=== PATIENT | female | born 1995 | race Caucasian/White ===

== ENCOUNTER 2016-04-06 12:45 | Emergency (ER) | payer MEDICAID, OTHER ==
[~2016-04-06] VITALS: Wt 44.8 kg
[2016-04-06] MEDS ORDERED: ONDANSETRON (ODT) 4 MG TAB ODT STA (14:01)
[2016-04-06] MEDS ORDERED: ACETAMINOPHEN 500 MG TAB PO STA (14:01)
[2016-04-06 14:22] LABS: URINE BLOOD (Dip) POC 1+ (NEGATIVE)
[2016-04-06 14:23] LABS: ADD SCAN DIFF NO
[2016-04-06 14:24] LABS: BASOPHIL # 0.1 10^3/ul (0.0-0.1); BASOPHILS % 0.7 % (0.0-2.0); EOSINOPHILS # 0.2 10^3/ul (0.0-0.5); EOSINOPHILS % 1.4 % (0.0-7.0); HEMATOCRIT 40.4 % (37.0-47.0); LYMPHOCYTES # 4.2 10^3/ul (0.8-2.9); LYMPHOCYTES % 37.8 % (18.0-55.0); MEAN CORPUSCULAR HEMOGLOBIN 28.4 pg (29.0-33.0); MEAN CORPUSCULAR HGB CONC 32.2 g/dl (32.0-37.0); MEAN CORPUSCULAR VOLUME 88.2 fl (72.0-104.0); MEAN PLATELET VOLUME 9.3 fl (7.4-10.4); MONOCYTES % 9.3 % (0.0-13.0); NEUTROPHIL # 5.6 10^3/ul (1.6-7.5); NEUTROPHILS % 50.6 % (30.0-74.0); PLATELET COUNT 379 10^3/UL (140-415); RED BLOOD COUNT 4.58 10^6/ul (4.20-5.40); RED CELL DISTRIBUTION WIDTH 15.4 % (11.5-14.5); WHITE BLOOD COUNT 11.1 10^3/ul (4.8-10.8)
[2016-04-06 14:39] LABS: ALBUMIN/GLOBULIN RATIO 0.95
[2016-04-06 14:47] LABS: ALBUMIN 4.2 g/dl (3.3-4.9); BILIRUBIN,INDIRECT 0.1 mg/dl (0-1.1); BILIRUBIN,TOTAL 0.1 mg/dl (0.2-1.3); CALCIUM 9.3 mg/dl (8.4-10.2); CREATININE 0.62 mg/dl (0.44-1.00); POTASSIUM 4.1 mmol/L (3.5-5.1); TOTAL PROTEIN 8.6 g/dl (6.1-8.1)
[2016-04-06] MEDS ORDERED: ACET500C5 PO (15:11)
[2016-04-06] MEDS ORDERED: ONDA8TAB14 PO (15:11)
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
[2016-04-06] MEDS ORDERED: CEPH-443 PO (15:15)
== END 2016-04-06 15:32 | disposition home or self-care (01) ==
LOC: FTE 12:45
DX: T59.91XA Toxic effect of unspecified gases, fumes and vapors, accidental (unintentional), initial encounter (principal); R11.0 Nausea
CPT/HCPCS: 80053; 81003; 85025; Z7502; Z7610; 99284